=== PATIENT | female | born 1990 | race African-American/Black ===

== ENCOUNTER → 2016-10-24 | Outpatient (CLI) | payer OTHER ==
[~2016-10-24] MED LIST: BCP TD; CYMBALTA30 MG PO; HYDROXYZINE PAM25 MG PO; KLONOPIN 1MG1 MG PO; LAMICTAL200 MG PO; RISPERDAL2 MG PO
== END ==
LOC: BHSO 13:48 → EDBD 13:48
DX: F31.74 Bipolar disorder, in full remission, most recent episode manic (principal)